=== PATIENT | female | born 1995 | race Caucasian/White ===

== ENCOUNTER 2019-06-26 16:40 | Emergency (ER) | payer MEDICAID ==
[~2019-06-26] VITALS: Ht 165.1 cm; Wt 84.1 kg
[2019-06-26 16:45] VITALS: Ht 165.1 cm; Wt 84.1 kg
[2019-06-26 18:57] VITALS: BP 120/60
== END 2019-06-26 18:57 | disposition home or self-care (01) ==
LOC: D.ER 16:40
DX: O26.891 Other specified pregnancy related conditions, first trimester (principal); Z3A.09 9 weeks gestation of pregnancy; S61.511A Laceration without foreign body of right wrist, initial encounter; W19.XXXA Unspecified fall, initial encounter; Y93.9 Activity, unspecified; Y92.9 Unspecified place or not applicable

== ENCOUNTER 2019-07-24 19:48 | Emergency (ER) | payer MEDICAID ==
[~2019-07-24] VITALS: Ht 165.1 cm; Wt 81.8 kg
[2019-07-24 20:27] VITALS: Ht 165.1 cm; Wt 81.8 kg
[2019-07-24 21:04] LABS: BASOPHILS 0.3 % (0-2); EOSINOPHILS 2.3 % (0-7); HEMATOCRIT 36.7 % (36.0-48.0); HEMOGLOBIN 12.6 g/dL (12-16); IMMATURE GRANULOCYTES 0.3 % (0-5); LYMPHOCYTES 19.5 % (15-50); MCH 28.3 pg (26.0-34.0); MCHC 34.3 g/dL (31.0-37.0); MCV 82.5 fL (80.0-100.0); MEAN PLATELET VOLUME 11.2 fL (7.4-10.4); MONOCYTES 5.9 % (2-11); NEUTROPHILS 71.7 % (40-80); PLATELET COUNT 223 10x3/uL (130-400); RBC 4.45 10x6/uL (4.00-5.40); RDW 13.4 % (11.5-14.5); WBC 10.3 10x3/uL (4.8-10.8)
[2019-07-24 21:12] LABS: APPEARANCE HAZY (CLEAR); BILIRUBIN NEGATIVE (NEGATIVE); COLOR YELLOW (YELLOW); GLUCOSE NEGATIVE (NEGATIVE); KETONE NEGATIVE (NEGATIVE); NITRITE NEGATIVE (NEGATIVE); PROTEIN NEGATIVE (NEGATIVE); SPECIFIC GRAVITY 1.025 (1.005-1.020); UROBILINOGEN NORMAL (NORMAL)
[2019-07-24 21:14] LABS: BACTERIA FEW /hpf (NEGATIVE); EPITHELIAL CELLS 0-5 /hpf (0-5); RED CELLS - URINE OCC /hpf (0-5); WHITE CELLS - URINE 0-5 /hpf (NEGATIVE)
[2019-07-24 21:16] LABS: CALC OSMOLALITY 273 mosm/kg (275-300); CALCIUM 8.6 mg/dL (8.5-10.1); CARBON DIOXIDE 27.1 mmol/L (21.0-32.0); CHLORIDE - SERUM 104 mmol/L (98-107); CREATININE - SERUM 0.6 mg/dL (0.6-1.3); GLUCOSE 91 mg/dL (74-106); POTASSIUM - SERUM 3.5 mmol/L (3.5-5.1); SODIUM 138 mmol/L (136-145); UREA NITROGEN 8 mg/dL (7-18); eGFR NON AFRICAN AMERICAN > 90 mL/min (90-120)
[2019-07-24 21:44] LABS: ALBUMIN 3.3 g/dL (3.4-5.0); ALKALINE PHOSPHATASE 56 U/L (30-120); ALT (SGPT) 15 U/L (10-68); AMYLASE - SERUM 58 U/L (25-115); BILIRUBIN - TOTAL 0.25 mg/dL (0.2-1.3); HCG - QUANTITATIVE (MATERNAL) 43340 mIU/mL; HCG SERUM POSITIVE (NEGATIVE); LIPASE 113 U/L (73-393); PROTEIN - SERUM 7.3 g/dL (6.4-8.2)
[2019-07-24 21:45] LABS: TROPONIN-I < 0.017 ng/mL (0.000-0.060)
[2019-07-24] MEDS ORDERED: KEFLEX500 MG PO (22:51)
[2019-07-24] MEDS ORDERED: MACROBID100 MG PO (22:51)
[2019-07-24 23:48] VITALS: BP 113/71
== END 2019-07-24 23:43 | disposition home or self-care (01) ==
LOC: D.ER 19:48
PROVIDERS: Family Medicine
DX: O26.891 Other specified pregnancy related conditions, first trimester (principal); Z3A.13 13 weeks gestation of pregnancy; R10.33 Periumbilical pain

== ENCOUNTER 2019-08-20 13:03 | Emergency (ER) | payer SELFPAY ==
[~2019-08-20] VITALS: Ht 165.1 cm; Wt 72.7 kg
[~2019-08-20 13:03] MED LIST: KEFLEX500 MG PO; MACROBID100 MG PO
[2019-08-20 13:29] VITALS: Ht 165.1 cm; Wt 72.7 kg
[2019-08-20 14:26] LABS: BACTERIA FEW /hpf (NEGATIVE); BILIRUBIN NEGATIVE (NEGATIVE); EPITHELIAL CELLS 0-5 /hpf (0-5); GLUCOSE NEGATIVE (NEGATIVE); KETONE NEGATIVE (NEGATIVE); NITRITE NEGATIVE (NEGATIVE); RED CELLS - URINE NONE SEEN /hpf (0-5); SPECIFIC GRAVITY 1.015 (1.005-1.020); UROBILINOGEN NORMAL (NORMAL)
[2019-08-20] MEDS ORDERED: ACETAMINOPHEN500 M1 PO (14:53)
[2019-08-20] MEDS ORDERED: MACROBID100 MG PO (15:01)
[2019-08-20] MEDS ORDERED: KEFLEX500 MG PO (15:01)
[2019-08-20 15:48] VITALS: BP 115/60
== END 2019-08-20 15:49 | disposition home or self-care (01) ==
LOC: D.ER 13:03
PROVIDERS: Family Medicine
DX: O23.42 Unspecified infection of urinary tract in pregnancy, second trimester (principal); Z3A.16 16 weeks gestation of pregnancy; R51 Headache; G43.909 Migraine, unspecified, not intractable, without status migrainosus